=== PATIENT | male | born 1990 | race African-American/Black ===

== ENCOUNTER 2017-08-02 15:59 | Emergency (ER) | payer OTHER ==
--- NOTE | 2017-08-02 16:20 | ER Document Report ---
ED Medical Screen (RME) - General Chief Complaint: Rectal Foreign Body Stated Complaint: FOREIGN OBJECT IN RECTUM Time Seen by Provider: 08/02/17 16:18 Mode of Arrival: Ambulatory Information source: Patient TRAVEL OUTSIDE OF THE [place] IN LAST 30 DAYS: No - HPI Patient complains to provider of: rectal FB Onset: Just prior to arrival - pt. states he inserted a glass ipie up his rectum while he was being arrested. - Related Data Allergies/Adverse Reactions: No Known Allergies Allergy (Unverified 08/05/16 23:49) Past Medical History - Social History Frequency of alcohol use: None Drug Abuse: Heroin Renal/ Medical History: Denies: Hx Peritoneal Dialysis Physical Exam - Vital signs Vitals: Temp Pulse Resp BP Pulse Ox 98.9 F 70 20 137/94 H 100 08/02/17 16:05 08/02/17 16:05 08/02/17 16:05 08/02/17 16:05 08/02/17 16:05 Course - Vital Signs Vital signs: Temp Pulse Resp BP Pulse Ox 98.9 F 70 20 137/94 H 100 08/02/17 16:05 08/02/17 16:05 08/02/17 16:05 08/02/17 16:05 08/02/17 16:05
--- NOTE | 2017-08-02 17:01 | RADIOLOGY REPORT (SQ) ---
EXAM DESCRIPTION: PELVIS AP COMPLETED DATE/TIME: 08/02/2017 4:36 pm REASON FOR STUDY: rectal FB COMPARISON: None. NUMBER OF VIEWS: One view TECHNIQUE: AP Pelvis LIMITATIONS: None. FINDINGS: MINERALIZATION: Normal. HIPS: No acute fracture or dislocation. No worrisome bone lesions. PELVIS AND SACRUM: No acute fracture or dislocation. No worrisome bone lesions. PUBIS AND ISCHIUM: No acute fracture. LOWER LUMBAR SPINE: No significant findings as visualized. SOFT TISSUES: No radiopaque foreign body is seen. OTHER: No other significant finding. IMPRESSION: NEGATIVE STUDY OF THE PELVIS. TECHNICAL DOCUMENTATION: JOB ID: [id number] [email or web address] [facility] [email or web address]- All Rights Reserved
[2017-08-02] MEDS ORDERED: ACETAMINOPHEN 325 MG TABLET PO ONE (17:26)
--- NOTE | 2017-08-02 17:26 | ER Document Report ---
ED Foreign Body - General Chief Complaint: Rectal Foreign Body Stated Complaint: FOREIGN OBJECT IN RECTUM Time Seen by Provider: 08/02/17 16:18 Mode of Arrival: Ambulatory Notes: Patient is a 26 year old male who presents to the ED from [facility], [place] complaining of rectal pain becuase he had inserted a weed pipe in his rectum when he was arrested on Monday. he states he is not sure if it is still in there. He has had two normal bowel movements since then. Denies any pain, admits to discomfort with bowel movement and blood on the toilet paper after wiping. Denies any BRBPR as in multiple clots, denies abdominal pain, n/v/d/c/fever/ chills. Tolerating PO without any difficulty, does not feel full/distended TRAVEL OUTSIDE OF THE [place] IN LAST 30 DAYS: No - Related Data Allergies/Adverse Reactions: No Known Allergies Allergy (Unverified 08/05/16 23:49) Past Medical History - General Information source: Patient - Social History Smoking Status: Current Every Day Smoker Frequency of alcohol use: None Drug Abuse: Heroin Family History: Reviewed & Not Pertinent Patient has suicidal ideation: No Patient has homicidal ideation: No Renal/ Medical History: Denies: Hx Peritoneal Dialysis Review of Systems - Review of Systems Constitutional: No symptoms reported Cardiovascular: No symptoms reported Respiratory: No symptoms reported Gastrointestinal: See HPI -: Yes All other systems reviewed and negative Physical Exam - Vital signs Vitals: Temp Pulse Resp BP Pulse Ox 98.9 F 70 20 137/94 H 100 08/02/17 16:05 08/02/17 16:05 08/02/17 16:05 08/02/17 16:05 08/02/17 16:05 - General General appearance: Appears well, Alert In distress: None - Respiratory Respiratory status: No respiratory distress Chest status: Nontender Breath sounds: Normal Chest palpation: Normal - Cardiovascular Rhythm: Regular Heart sounds: Normal auscultation, S1 appreciated, S2 appreciated Pulses: Normal: Radial, Dorsalis pedis Normal capillary refill: Yes - Abdominal Inspection: Normal Distension: No distension Bowel sounds: Normal Tenderness: Nontender Organomegaly: No organomegaly - Rectal Tenderness: No Hemorrhoids: None. No: Internal, External, Anal fissure, Mass Prostate: Normal Notes: no evidence of foreign body or tenderness - Neurological Neuro grossly intact: Yes Cognition: Normal Orientation: AAOx4 Preet Coma Scale Eye Opening: Spontaneous [place] Coma Scale Verbal: Oriented Preet Coma Scale Motor: Obeys Commands Preet Coma Scale Total: 15 Course - Re-evaluation Re-evalutation: 08/02/17 19:12 Patient is a 26-year-old male who is hemodynamically stable, no acute distress afebrile. No evidence of retained foreign body noted on pelvis x-ray. Nothing noted on physical exam. Patient educated on signs and symptoms aware of indicating return to the emergency department otherwise benign physical exam. Given Dr. Mack's name for follow-up as needed. Otherwise stable for discharge home. - Vital Signs Vital signs: Temp Pulse Resp BP Pulse Ox 98.9 F 68 16 123/84 100 08/02/17 17:51 08/02/17 17:51 08/02/17 17:51 08/02/17 17:51 08/02/17 17:51 - Diagnostic Test Radiology reviewed: Image reviewed, Reports reviewed Discharge - Discharge Clinical Impression: Rectal pain Condition: Good Disposition: HOME, SELF-CARE Additional Instructions: No evidence of foreign body noted on your work up today You can take acetaminophen as needed for pain Referrals: LISANDRO SAWANT MD [ACTIVE STAFF] - Follow up as needed
[2017-08-02 17:54] VITALS: BP 123/84
== END 2017-08-02 17:55 | disposition home or self-care (01) ==
LOC: ER 15:59
DX: K62.89 Other specified diseases of anus and rectum (principal); F17.200 Nicotine dependence, unspecified, uncomplicated
CPT/HCPCS: 72170; 99284